=== PATIENT | female | born 1975 | race Caucasian/White ===

== ENCOUNTER 2021-09-08 08:57 | Emergency (ER) | payer OTHER ==
--- OUTSIDE RECORDS SUMMARY | 2021-09-08 09:03 | XMS REPORT | Continuity of Care Document ---
:[address] [facility] t Address [address] [place] [address] Care Team Providers Name Role Phone Jose Aguiar MDYony Primary Care Physician LINWOOD Attending Clinician Unavailable Nisha CORONA Attending Clinician Unavailable Duyen OCONNOR Attending Clinician Unavailable Duyen Oconnor MD Attending Clinician Nisha GIL Attending Clinician Unavailable Alexsander Faria MD Attending Clinician [facility] Attending Clinician Unavailable Maycol COLMENARES Attending Clinician Unavailable [facility] Attending Clinician Unavailable Nisha Gil MD Attending Clinician [id number] Attending Clinician Unavailable Mamta Shaver MD Attending Clinician [id number] Attending Clinician Unavailable MAMTA SHAVER Attending Clinician Unavailable Rashawn SONG Attending Clinician Unavailable Rashawn SONG Attending Clinician [phone] Eduarod Chopra Attending Clinician Unavailable Payers Payer Name Policy Type Policy Number Effective Date Expiration Date Rashawn rizo [facility] [id number] 2019 00:00:00 [place] [id number] 2021 00:00:00 PLANS Problems Condition Condition Condition Status Onset Resolution Last Treating Co mments Source Name Details Category Date Date Treatment Clinician Date No known No known Disease Kelse y active active Seybold problems problems Allergies, Adverse Reactions, Alerts Allergy Allergy Status Severity Reaction(s) Onset Inactive Treating Comm ents Source Name Type Date Date Clinician Morphine Propensi Active Shortness of Ingrid ty to Breath 3-14 Seybold adverse 00:00: reaction 00 s Iodine Propensi Active 2015-04 Horrible Method i ty to 2-[address] adverse 00:00: ! Hospita reaction 00 l s to drug Iodine Propensi Active Anaphylaxis 2015-04 Horrible K elsey ty to 2-16 reactions Seybold adverse 00:00: ! reaction 00 s Family History Family Member Diagnosis Comments Start Date Stop Date Source Natural father [facility] Natural mother Aortic aneurysm [facility] Social History Social Habit Start Date Stop Date Quantity Comments Source Alcohol intake 2018-04-12 2018-04-12 .14 /d [facility] Tobacco use and 2016-03-31 2016-03-31 Smokeless tobacco [facility] exposure 00:00:00 00:00:00 non-user Hospital History of 1999-04-16 Smoker Ingrid Seybold tobacco use 00:00:00 Sex Ass[birth year] At [birth year] [facility] 00:00:00 00:00:00 [facility] Smoking Status Start Date Stop Date Source Unknown if ever smoked [facility] Ex-smoker 2018-09-25 00:00:00 2018-09-25 00:00:00 Ingrid knox Never smoked tobacco [facility] Medications Ordered Filled Start Stop Current Ordering Indication Dosage Frequency Signature Comments Components Source Medication Medication Date Date Medication? Clinician (SIG) Name Name Famotidine Yes 20mg Take 1 Kelse y (Pepcid) 20 4-25 tablet (20 Se ybold MG oral 00:00: mg total) tablet 00 by mouth in the morning and 1 tablet (20 mg total) in the evening. Cyclobenzap Yes [id number] 10mg Q.[id number] Take 1 Ingrid rine HCl 10 4-12 [id number] tablet (10 Seybold MG oral 00:00: 3D mg total) Tablet 00 by mouth 3 times daily as needed for muscle spasms Cyclobenzap Yes [id number] 10mg Q.[id number] Take 1 Ingrid rine HCl 10 4-12 [id number] tablet (10 Seybold MG oral 00:00: 3D mg total) Tablet 00 by mouth 3 times daily as needed for muscle spasms Meloxicam 2021- Yes [id number] 15mg Take 1 K elsey 15 MG oral 4-05 05-06 tablet (15 Se ybold Tablet 00:00: 04:59 mg total) 00 :00 by mouth daily Meloxicam 2021- Yes [id number] 15mg Take 1 K elsey 15 MG oral 4-05 05-06 tablet (15 Se ybold Tablet 00:00: 04:59 mg total) 00 :00 by mouth daily Meloxicam 2021- Yes [id number] 15mg Take 1 K elsey 15 MG oral 4-05 05-06 tablet (15 Se ybold Tablet 00:00: 04:59 mg total) 00 :00 by mouth daily No known No No known Kelse y medications 3-29 medication Se ybold 15:59: s 14 Naproxen Yes 500mg Take 500 Caitie ey 500 MG oral 3-14 mg by Seybold Tablet 00:00: mouth in 00 the morning and 500 mg in the evening. Naproxen Yes 500mg Take 500 Caitie ey 500 MG oral 3-14 mg by Seybold Tablet 00:00: mouth in 00 the morning and 500 mg in the evening. No known No No known Kelse y medications 1-18 medication Se ybold 13:53: s 57 Azithromyci 2019-04- No [id number] 1000mg Take 2 Ingrid n 500 MG 0-27 12-16 tablets Seybold oral Tab 00:00: 00:00 (1,000 mg 00 :00 total) by mouth daily No known 2017-04 No No known Metho di medications 2-[address] 20:14: s Hospita 58 l Vital Signs Vital Name Observation Time Observation Value Comments Source Systolic blood pressure 2021-08-08 15:59:00 127 mm[Hg] Ingrid Seybold Diastolic blood 2021-08-08 15:59:00 68 mm[Hg] Kelse y Seybold pressure Heart rate 2021-08-08 15:59:00 81 /min Ingrid S eybold Body temperature 2021-08-08 15:59:00 36.83 Jessica Caitie ey Seybold Respiratory rate 2021-08-08 15:59:00 16 /min Caitie ey Seybold Body height 2021-08-08 15:59:00 170.2 cm Ingrid S eybold Body weight 2021-08-08 15:59:00 78.472 kg Ingrid S eybold BMI 2021-08-08 15:59:00 27.10 kg/m2 Ingrid S eybold Body height 2021-07-26 14:15:00 170.2 cm Ingrid S eybold Body weight 2021-07-26 14:15:00 78.926 kg Ingrid S eybold BMI 2021-07-26 14:15:00 27.25 kg/m2 Ingrid S eybold Systolic blood pressure 2021-07-19 21:22:00 106 mm[Hg] Ingrid Seybold Diastolic blood 2021-07-19 21:22:00 68 mm[Hg] Kelse y Seybold pressure Heart rate 2021-07-19 21:22:00 76 /min Ingrid S eybold Body temperature 2021-07-19 21:22:00 36.33 Jessica Caitie ey Seybold Respiratory rate 2021-07-19 21:22:00 16 /min Caitie ey Seybold Body height 2021-07-19 21:22:00 170.2 cm Ingrid S eybold Body weight 2021-07-19 21:22:00 78.983 kg Ingrid S eybold BMI 2021-07-19 21:22:00 27.27 kg/m2 Ingrid S eybold Systolic blood pressure 2021-07-12 20:57:00 110 mm[Hg] Ingrid Seybold Diastolic blood 2021-07-12 20:57:00 68 mm[Hg] Kelse y Seybold pressure Heart rate 2021-07-12 20:57:00 70 /min Ingrid S eybold Body temperature 2021-07-12 20:57:00 36.67 Jessica Caitie ey Seybold Respiratory rate 2021-07-12 20:57:00 16 /min Caitie ey Seybold Body height 2021-07-12 20:57:00 170.2 cm Ingrid S eybold Body weight 2021-07-12 20:57:00 79.379 kg Ingrid S eybold BMI 2021-07-12 20:57:00 27.41 kg/m2 Ingrid S eybold Systolic blood pressure 2021-05-03 19:52:00 96 mm[Hg] Ingrid Seybold Diastolic blood 2021-05-03 19:52:00 63 mm[Hg] Kelse y Seybold pressure Heart rate 2021-05-03 19:52:00 65 /min Ingrid S eybold Body temperature 2021-05-03 19:52:00 36.5 Jessica Caitie ey Seybold Respiratory rate 2021-05-03 19:52:00 17 /min Caitie ey Seybold Body height 2021-05-03 19:52:00 170.2 cm Ingrid S eybold Body weight 2021-05-03 19:52:00 80.74 kg Ingrid S eybold BMI 2021-05-03 19:52:00 27.88 kg/m2 Ingrid S eybold Systolic blood pressure 2021-03-31 15:48:00 107 mm[Hg] Ingrid Seybold Diastolic blood 2021-03-31 15:48:00 69 mm[Hg] Kelse y Seybold pressure Heart rate 2021-03-31 15:48:00 67 /min Ingrid S eybold Body temperature 2021-03-31 15:48:00 36.56 Jessica Caitie ey Seybold Respiratory rate 2021-03-31 15:48:00 18 /min Caitie ey Seybold Body height 2021-03-31 15:48:00 170.2 cm Ingrid S eybold Body weight 2021-03-31 15:48:00 79.198 kg Ingrid S eybold BMI 2021-03-31 15:48:00 27.35 kg/m2 Ingrid S eybold Procedures Procedure Date / Time Performed Performing Clinician [facility] ULTRASOUND PELVIS 2021-03-31 18:59:10 Shelby Shaver Infectious agent 2020-05-13 00:00:00 [facility] detection by nucleic acid (DNA or Plan of Care Planned Activity Planned Date Details Comments Source Future Scheduled 2021-04-27 [facility] 17:34:18 (1) [code = COVID-19 VACCINE (1)] Future Scheduled 2021-04-27 [facility] Test 17:34:18 malignant neoplasm of cervix (procedure) [code = 543170011] Future Scheduled 2021-04-27 [facility]ACCINE [facility] 17:34:18 [code = INFLUENZA VACCINE] Encounters Start End Encounter Admission Attending Care Care Encounter Source Date/Time Date/Time Type Type Clinicians Facility Department ID 2021-07-18 Outpatient JANELL PALUMBO [facility] [id number] -[id number] [place] 13:30:18 [id number] [facility] 2021-07-15 Outpatient LINWOODJANELL [facility] [id number] -[id number] [place] 14:12:36 [id number] [facility] 2021-09-05 2021-09-05 Outpatient INGRID CORONA [id number] Ingrid 00:00:00 00:00:00 PERCY Selidyao ld 2021-08-17 2021-08-17 Outpatient INGRID OCONNOR [id number] Ingrid 00:00:00 00:00:00 JOHN Paulol duyen 2021-08-08 2021-08-08 Outpatient INGRID ORONA [id number] Ingrid 11:30:00 11:30:00 Seybol d 2021-08-08 2021-08-08 Office LES Oconnor [id number] Ingrid 11:00:00 11:15:00 Visit [facility] [id number] [facility] [id number] 2021-08-04 2021-08-04 Outpatient INGRID CORONA [id number] Ingrid 00:00:00 00:00:00 MOHAMMED Seybo ld 2021-08-02 2021-08-02 Outpatient INGRID ORONA [id number] Ingrid 15:30:00 15:30:00 Seybol d 2021-07-29 2021-07-29 Outpatient ZANDRA CORONAFRANNIE ORONA [id number] Ingrid 00:00:00 00:00:00 PERCY Vuybo ld 2021-07-29 2021-07-29 Outpatient INGRID CORONA INGRID [id number] Ingrid 00:00:00 00:00:00 DAJAED Seybo ld 2021-07-26 2021-07-26 Office [facility] [id number] Ingrid 09:00:00 09:00:00 Visit [facility] [id number] abilio [id number] 2021-07-26 2021-07-26 Outpatient CJ INGRID ORONA [id number] Ingrid 00:00:00 00:00:00 DAJAED Seybo ld 2021-07-26 2021-07-26 Outpatient EITAN-NT INGRID ORONA [id number] Ingrid 00:00:00 00:00:00 Gamal MACIAS 2021-07-21 2021-07-21 Outpatient EITAN-NT INGRID ORONA [id number] Ingrid 00:00:00 00:00:00 Gamal MACIAS 2021-07-19 2021-07-19 Outpatient INGRID ORONA [id number] Ingrid 17:05:00 17:05:00 Seybol duyen 2021-07-19 2021-07-19 Outpatient INGRID ORONA [id number] Ingrid 17:00:00 17:00:00 Seybol d 2021-07-19 2021-07-19 Office Julio César Faria [id number] Ingrid 16:30:00 17:00:00 Visit Alexsander Ma [id number] Nayana Mcdaniel [id number] 2021-07-19 2021-07-19 Outpatient HONORIO ORONA [id number] Ingrid 00:00:00 00:00:00 MD JOSE Seybol d 2021-07-182021-07-18 Outpatient NWAERUBY, INGRID ORONA [id number] Ingrid 09:30:00 09:30:00 ADRI Seybol d 2021-07-17 2021-07-17 Outpatient NAKYONYI-NT INGRID ORONA [id number] Ingrid 00:00:00 00:00:00 WATWA, Seybol d OLGA 2021-07-13 2021-07-13 Outpatient GROUP, INGRID ORONA [id number] Ingrid 00:00:00 00:00:00 INGRID Seybol d 2021-07-13 2021-07-13 Outpatient NAKYONYI-NT INGRID ORONA [id number] Ingrid 00:00:00 00:00:00 WATWA, Seybol d OLGA 2021-07-13 2021-07-13 Outpatient NAKYONYI-NT INGRID ORONA [id number] Ingrid 00:00:00 00:00:00 WATWA, Seybol d OLGA 2021-07-12 2021-07-12 Outpatient INGRID ORONA [id number] Ingrid 17:05:00 17:05:00 Seybol d 2021-07-12 2021-07-12 Office Nakyonyi-Nt [place] [id number] Ingrid 15:45:00 16:00:00 Visit [facility] [id number] jennifer [place] [id number] 2021-07-12 2021-07-12 Outpatient NAKYONYI-NT INGRID ORONA [id number] Ingrid 00:00:00 00:00:00 WATWA, Seybol d OLGA 2021-05-03 2021-05-03 Outpatient [id number] INGRID ORONA [id number] Ingrid 14:20:00 14:20:00 Seybol d 2021-05-03 2021-05-03 Outpatient [id number]-[id number] INGRID ORONA [id number] Ingrid 14:15:00 14:15:00 Seybol d 2021-05-03 2021-05-03 Office KELTON Shaver [id number] Ingrid 13:45:00 14:00:00 Visit [facility] MEDICAL & [id number] Seybold Mamta DIAGNOSTI [id number] [facility] [id number] 2021-03-31 2021-03-31 Outpatient INGRID ORONA [id number] Ingrid 12:30:00 12:30:00 Seybol d 2021-03-31 2021-03-31 Outpatient [id number] INGRID INGRID [id number] Ingrid 10:50:00 10:50:00 Seybol d 2021-03-31 2021-03-31 Outpatient LAB45 INGRID INGRID [id number] Ingrid 10:35:00 10:35:00 Seybol d 2021-03-31 2021-03-31 Office KELTON Shaver SANDY [id number] Ingrid 09:30:00 09:45:00 Visit [facility].1.13.13 Seybold Mamta DIAGNOSTI [id number] [facility] [id number] 2021-03-29 2021-03-29 Outpatient INGRID SHAVER [id number] Ingrid 00:00:00 00:00:00 SHELBY Seybol d 2020-05-13 2020-05-13 [facility] [id number] Access 00:00:00 00:00:[address] [facility] 2020-05-13 2020-05-13 [facility] [id number] Access 00:00:00 00:00:00 JOSE Morocho [id number] [facility] [id number] 2018-04-29 Outpatient ABARHAM Chopra [id number] [facility] 10:23:00 10:23:00 Gene OBGYDaria 2017-05-23 2017-05-23 Outpatient ABRAHAM Chopra [id number] [facility] 16:25:00 16:25:00 Gene OBGYN 2016-10-27 2016-10-27 Outpatient ABRAHAM Chopra [id number] [facility] 14:33:00 14:33:00 Zach Olivarez Results Test Description Test Time Test Comments Results Result Comments Source Panel Description: SARS-CoV-2 (COVID-19) RNA [Presence] in 2 12:11:00 Specimen by JEANNE with probe detection Test Item Value Reference Range Interpretation Comme nts SARS-CoV-2, JEANNE (test Detected Not Detected A Testin g was performed using the Aptima code = 76858-8) SARS-CoV-2 a ssay.This nucleic acid amplification t est was developed and its performance characteristics determined by RV [facility]. Nucleic acidamp lification tests include RT-PCR and TMA. This test has not beenFDA cleared or approved. This test has been author ized by FDA underan Emergency Use A uthorization (EUA). This test is only au thorizedfor the duration of time the dec laration that circumstances e xistjustifying the authorization o f the emergency use of in vitrodiagnos tic tests for detection of SARS-CoV-2 v irus and/or diagnosisof COVID-19 infect ion under section 564(b)(1) of th e Act, 21 U.S.C.360bbb-3( b) (1), unless the authorization i s terminated or revokedsooner.W hen diagnostic testing is negative, th e possibility of a falsenegative r esult should be considered in t he context of a patient'srecent exposures and the presence of cli nical signs and symptomsconsist ent with COVID-19. An individual with out symptoms of COVID-19and who is not shedding SARS-CoV-2 viru s would expect to have anegative (not detected) result in this assay.
<br/ >Performed by:
Serg CARLTON)

[facility]
[2021-09-08] MEDS ORDERED: NA CHLORIDE 0.9% 1,000 ML ONE (09:42)
[2021-09-08] MEDS ORDERED: FAMOTIDINE 20 MG/2 ML VIAL IV ONE (09:42)
[2021-09-08] MEDS ORDERED: ONDANSETRON 4 MG/2 ML VIAL ONE (09:42)
[2021-09-08 09:49] LABS: Absolute Lymphocytes (CBC) 0.3 K/uL (0.7-4.9); Hematocrit 40.5 % (36.0-45.0); Lymphocytes % 5.2 % (15.3-44.8); RBC Red Blood Cell Count 4.59 M/uL (3.86-4.86)
[2021-09-08 10:00] LABS: Albumin 3.7 g/dL (3.4-5.0); Bilirubin Total 0.6 mg/dL (0.2-1.0); Potassium 3.5 mmol/L (3.5-5.1)
[2021-09-08 10:57] LABS: Urine Blood Trace-intact (Negative); Urine Glucose Negative (Negative); Urine Protein Negative (Negative); Urine Specific Gravity <=1.005 (1.005-1.030)
--- NOTE | 2021-09-08 12:11 | EDPHYS ---
Physician Documentation [facility] Name: Christina Phan Age: 46 yrs Sex: Female : 1975 Arrival Date: 09/08/2021 Time: 09:01 Bed 18 Private MD: ED Physician Goldy Gilbert HPI: 09/08 09:15 This 46 yrs old Female presents to ER via Ambulatory with complaints of jmm Vomiting/Diarrhea, Fever. 09:15 The patient presents to the emergency department with nausea, vomiting. Onset: The jmm symptoms/episode began/occurred gradually. Possible causes: unknown. 09:15 The symptoms are aggravated by nothing. The symptoms are alleviated by nothing. jmm 09:15 Associated signs and symptoms: Pertinent positives: diarrhea, fever, vomiting. The jmm patient has not experienced similar symptoms in the past. 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 - Social history:: Smoking status: . ROS: 09:15 Constitutional: Negative for fever, chills, and weight loss, Cardiovascular: Negative jmm for chest pain, palpitations, and edema, Respiratory: Negative for shortness of breath, cough, wheezing, and pleuritic chest pain. 09:15 Abdomen/GI: Positive for abdominal pain, vomiting, diarrhea. 09:15 All other systems are negative. Exam: 09:15 Constitutional: This is a well developed, well nourished patient who is awake, alert, jmm and in no acute distress. Head/Face: atraumatic. Eyes: EOMI, no conjunctival erythema appreciated ENT: Moist Mucus Membranes Neck: Trachea midline, Supple Chest/axilla: Normal chest wall appearance and motion. Cardiovascular: Regular rate and rhythm. No edema appreciated Respiratory: Normal respirations, no respiratory distress appreciated Abdomen/GI: Non distended, soft Back: Normal ROM Skin: General appearance color normal MS/ Extremity: Moves all extremities, no obvious deformities appreciated, no edema noted to the lower extremities Neuro: Awake and alert Psych: Behavior is normal, Mood is normal, Patient is cooperative and pleasant Vital Signs: 09:19 BP 107 / 78; Pulse 79; Resp 16; Temp 98.8; Pulse Ox 99% on R/A; iw 10:47 BP 107 / 69; Pulse 69; Resp 15; ll1 12:21 BP 102 / 56; Pulse 69; Resp 15; Pulse Ox 99% ; Pain 0/10; ll1 MDM: 09:15 Patient medically screened. [facility] 12:07 Data reviewed: vital signs, nurses notes. Counseling: I had a detailed discussion with [facility] the patient and/or guardian regarding: the historical points, exam findings, and any diagnostic results supporting the discharge/admit diagnosis, lab results, the need for outpatient follow up, to return to the emergency department if symptoms worsen or persist or if there are any questions or concerns that arise at home. ED course: Patient states she feels much better. No abdominal pain on palpation. I do not suspect acute appendicitis. Patient otherwise given strict return precautions. patient understood and agrees with the plan of care. . 09/08 09:16 Order name: CBC with Diff [facility] 09/08 09:16 Order name: CMP; Complete Time: 10:16 [facility] 09/08 09:16 Order name: Lipase; Complete Time: 10:16 [facility] 09/08 09:23 Order name: COVID-19 SARS RT PCR (Document "Date of Onset" if Symptomatic); Complete Time: 11:39 09/08 09:23 Order name: Flu; Complete Time: 10:51 09/08 09:52 Order name: CBC Smear Scan [facility] 09/08 09:16 Order name: IV Saline Lock; Complete Time: 09:24 [facility] 09/08 09:16 Order name: Labs collected and sent; Complete Time: 09:24 [facility] 09/08 09:16 Order name: Urine Dipstick-Ancillary (obtain specimen); Complete Time: 11:13 [facility] 09/08 10:57 Order name: Urine Dipstick-Ancillary; Complete Time: 11:00 [facility] 09/08 09:16 Order name: Urine Test (obtain specimen); Complete Time: 11:13 [facility] Administered Medications: 09:48 Drug: NS 0.9% 1000 ml Route: IV; Rate: 1 bolus; Site: right antecubital; ll1 10:45 Follow up: Response: No adverse reaction; IV Status: Completed infusion; IV Intake: ll1 1000ml 09:48 Drug: Pepcid (famotidine) 20 mg Route: IVP; Site: right antecubital; ll1 10:46 Follow up: Response: No adverse reaction ll1 09:50 Drug: Zofran (Ondansetron) 4 mg Route: IVP; Site: right antecubital; ll1 10:46 Follow up: Response: No adverse reaction; Nausea is decreased; RASS: Drowsy (-1) ll1 Disposition Summary: 09/08/21 12:11 Discharge Ordered Location: Home [facility] Condition: Stable jm Diagnosis - Vomiting jmm - Diarrhea, unspecified jmm Followup: [facility] - With: Private Physician - When: 2 - 3 days - Reason: Recheck today's complaints, Continuance of care, Re-evaluation by your physician Discharge Instructions: - Discharge Summary Sheet [facility] - Food Choices to Help Relieve Diarrhea, Adult jmm - Diarrhea, Adult jmm - Vomiting, Adult [facility] Forms: - Medication Reconciliation Form [facility] - Thank You Letter [facility] - Antibiotic Education [facility] - Prescription Opioid Use [facility] Prescriptions: - dicyclomine 20 mg Oral Tablet - take 1 tablet by ORAL route 4 times per day; 30 tablet; Refills: 0, Product [facility] Selection Permitted - ondansetron 4 mg Oral tablet,disintegrating - place 1 tablet by TRANSLINGUAL route every 4-6 hours As needed; 30 tablet; [facility] Refills: 0, Product Selection Permitted Signatures: Dispatcher [employer] Cruz Wilkinson PA PA jmm Williams, Irene, RN RN iw Lewis, Lynsay, RN RN llKatja Dean PA PA [id number]
--- NOTE | 2021-09-08 12:11 | ER ---
Nurse's Notes [facility] Name: Christina Phan Age: 46 yrs Sex: Female : 1975 Arrival Date: 09/08/2021 Time: 09:01 Bed 18 Private MD: Diagnosis: Vomiting;Diarrhea, unspecified Presentation: 09/08 09:19 Chief complaint: Friend and/or Co-Worker states: vomiting and diarrhea since yesterday. iw Coronavirus screen: At this time, the client does not indicate any symptoms associated with coronavirus-19. Ebola Screen: Patient negative for fever greater than or equal to 101.5 degrees Fahrenheit, and additional compatible Ebola Virus Disease symptoms Patient denies exposure to infectious person. Patient denies travel to an Ebola-affected area in the 21 days before illness onset. No symptoms or risks identified at this time. Initial Sepsis Screen: Does the patient meet any 2 criteria? No. Patient's initial sepsis screen is negative. Does the patient have a suspected source of infection? No. Patient's initial sepsis screen is negative. Risk Assessment: Do you want to hurt yourself or someone else? Patient reports no desire to harm self or others. 09:19 Method Of Arrival: Ambulatory iw 09:19 Acuity: AKHIL 3 iw 09:19 Onset of symptoms was September 07, 2021. 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 - Social history:: Smoking status: . Screenin:22 Abuse screen: Denies threats or abuse. Nutritional screening: No deficits noted. ll1 Tuberculosis screening: No symptoms or risk factors identified. Fall Risk Total Quigley Fall Scale indicates No Risk (0-24 pts). Assessment: 09:23 General: Appears uncomfortable, ill, Behavior is cooperative, appropriate for age. ll1 General: fever. Pain: Denies pain. GI: Abdomen is flat, Bowel sounds present X 4 quads. Reports cramping, diarrhea, nausea, vomiting. 10:15 Reassessment: No changes from previously documented assessment. Patient and/or family ll1 updated on plan of care and expected duration. Pain level reassessed. Patient is alert, oriented x 3, equal unlabored respirations, skin warm/dry/pink. 11:15 Reassessment: No changes from previously documented assessment. Patient and/or family ll1 updated on plan of care and expected duration. Pain level reassessed. Patient is alert, oriented x 3, equal unlabored respirations, skin warm/dry/pink. Patient states feeling better. 12:24 Reassessment: No changes from previously documented assessment. Patient and/or family ll1 updated on plan of care and expected duration. Pain level reassessed. Patient is alert, oriented x 3, equal unlabored respirations, skin warm/dry/pink. gait steady to and from restroom. Patient states feeling better. Patient states symptoms have improved. Vital Signs: 09:19 BP 107 / 78; Pulse 79; Resp 16; Temp 98.8; Pulse Ox 99% on R/A; iw 10:47 BP 107 / 69; Pulse 69; Resp 15; ll1 12:21 BP 102 / 56; Pulse 69; Resp 15; Pulse Ox 99% ; Pain 0/10; ll1 ED Course: 09:01 Patient arrived in ED. [id number] 09:07 Cruz Camarillo PA is PHCP. jm 09:07 Goldy Gilbert MD is Attending Physician. jmm 09:19 Triage completed. iw 09:19 Arm band placed on. iw 09:20 Inserted saline lock: 22 gauge in right antecubital area, using aseptic technique. ll1 Blood collected. 09:22 Holly Leung, RN is Primary Nurse. ll1 09:22 Patient placed in an exam room, on a stretcher. ll1 09:23 Patient has correct armband on for positive identification. Bed in low position. Call ll1 light in reach. Side rails up X2. Pulse ox on. NIBP on. 12:25 No provider procedures requiring assistance completed. IV discontinued, intact, ll1 bleeding controlled, No redness/swelling at site. Pressure dressing applied. Administered Medications: 09:48 Drug: NS 0.9% 1000 ml Route: IV; Rate: 1 bolus; Site: right antecubital; ll1 10:45 Follow up: Response: No adverse reaction; IV Status: Completed infusion; IV Intake: ll1 1000ml 09:48 Drug: Pepcid (famotidine) 20 mg Route: IVP; Site: right antecubital; 1 10:46 Follow up: Response: No adverse reaction 1 09:50 Drug: Zofran (Ondansetron) 4 mg Route: IVP; Site: right antecubital; ll1 10:46 Follow up: Response: No adverse reaction; Nausea is decreased; RASS: Drowsy (-1) 1 Medication: 09:23 VIS not applicable for this client. ll1 Intake: 10:45 IV: 1000ml; Total: 1000ml. ll1 Outcome: 12:11 Discharge ordered by . ronny 12:25 Discharged to home ambulatory. 1 12:25 Condition: stable 12:25 Discharge instructions given to patient, Instructed on discharge instructions, follow up and referral plans. medication usage, Demonstrated understanding of instructions, follow-up care, medications, Prescriptions given X 2. 12:26 Patient left the ED. 1 Signatures: Cruz Camarillo PA PA jmm Williams, Irene, LISA RN [facility] 4 Holly Leung RN RN [facility] Corrections: (The following items were deleted from the chart) 09:21 09:19 Chief complaint: Friend and/or Co-Worker states: vomiting and diarrhea [facility] 09:21 09:19 Pulse 79bpm; Resp 16bpm; Pulse Ox 99% RA; Temp 98.8F; iw iw
[2021-09-08 12:36] VITALS: TEMP 98.8; O2SAT 99
[2021-09-08 12:39] LABS: Blood Morphology Comment NOT SEEN (NOT SEEN); Platelet Estimate ADEQ; White Blood Cell Scan OK (OK)
[2021-09-08 12:54] VITALS: BP 102/56
== END 2021-09-08 12:26 | disposition home or self-care (01) ==
LOC: ER 08:57
DX: R11.2 Nausea with vomiting, unspecified (principal); R19.7 Diarrhea, unspecified; Z20.822 Contact with and (suspected) exposure to COVID-19; Z91.048 Other nonmedicinal substance allergy status
CPT/HCPCS: 96361; 85025; 36415; 81003; 83690; 80053; 87804 ×2; 96375; 96374; 99284; U0003; J7030; J2405; J3490